=== PATIENT | female | born 1975 | race Two or more races ===

== ENCOUNTER 2020-03-25 18:45 | Emergency (ER) | payer OTHER, MEDICAID ==
[~2020-03-25] VITALS: Ht 160 cm; Wt 91.0 kg
[2020-03-25 18:59] VITALS: BP 107/53
== END 2020-03-25 20:34 | disposition left against medical advice (07) ==
LOC: ER 18:45
DX: R06.02 Shortness of breath (principal); Z53.21 Procedure and treatment not carried out due to patient leaving prior to being seen by health care provider